=== PATIENT | female | born 1995 | race African-American/Black ===

== ENCOUNTER 2022-06-11 23:51 | Emergency (ER) | payer OTHER ==
[2022-06-12] MEDS ORDERED: Ketorolac Tromethamine 30 MG/ML VIAL ONE (00:43)
[2022-06-12] MEDS ORDERED: Lidocaine 1% w/Epinephrine 1:100K 20 ML VIAL ONE (02:03)
[2022-06-12] MEDS ORDERED: Bacitracin 1 PK ONE (03:33)
== END 2022-06-12 03:58 ==
LOC: ERS 23:51
DX: S81.011A Laceration without foreign body, right knee, initial encounter (principal); W19.XXXA Unspecified fall, initial encounter
CPT/HCPCS: 12004; 72100; 72170; 96372; J1885